=== PATIENT | male | born 1950 | race Caucasian/White ===

== ENCOUNTER → 2018-07-05 | Emergency (ER) | payer MEDICARE, OTHER ==
[~2018-07-05] VITALS: Ht 162.6 cm; Wt 68.2 kg
[~2018-07-05] MED LIST: fentaNYL/PF 50MCG/1 ML 2ML syringe IV ONE; morphine 4 MG/ML inj SYRINge IV ONE; ondansetron/PF 4mg/2ml inj IV ONE; propofol 10mg/ml 20ml vial IV ONE
[2018-07-05 14:03] LABS: BASOPHILS # (AUTO) 0.1 X10'3 (0-0.2); BASOPHILS % (AUTO) 0.4 % (0-1); EOSINOPHILS % (AUTO) 0.2 % (0-6); HEMATOCRIT 42.5 % (42.0-52.0); HEMOGLOBIN 14.4 g/dl (14.0-17.9); LYMPHOCYTES # (AUTO) 1.4 X10'3 (1.1-4.8); LYMPHOCYTES % (AUTO) 6.6 % (21-51); MEAN CORPUSCULAR HEMOGLOBIN 30.2 PG (27.0-31.0); MEAN CORPUSCULAR HGB CONC 33.9 g/dL (33.0-36.5); MEAN CORPUSCULAR VOLUME 89.2 FL (78-98); MONOCYTES # (AUTO) 1.2 X10'3 (0-0.9); MONOCYTES % (AUTO) 5.5 % (2-12); NEUTROPHILS # (AUTO) 18.9 X10'3 (1.8-7.7); NEUTROPHILS % (AUTO) 87.3 % (42-75); PLATELET COUNT 291 X10'3 (140-440); RED BLOOD COUNT 4.76 X10'6 (4.70-6.10); RED CELL DISTRIBUTION WIDTH 13.3 % (11.5-14.5); WHITE BLOOD COUNT 21.6 X10'3 (4.5-11.0)
--- NOTE | 2018-07-05 14:03 | NUR ---
PT BACK FROM CT
[2018-07-05 14:16] LABS: ALANINE AMINOTRANSFERASE 23 U/L (12-78); ALBUMIN 4.2 G/DL (3.4-5.0); ALBUMIN/GLOBULIN RATIO 1.3 (1.1-1.5); ALKALINE PHOSPHATASE 89 IU/L (46-116); ANION GAP 12 (8-16); ASPARTATE AMINO TRANSFERASE 17 U/L (10-37); BILIRUBIN,TOTAL 0.6 MG/DL (0.1-1.0); BLOOD UREA NITROGEN 14 MG/DL (7-18); BUN/CREATININE RATIO 14.9 (5.4-32.0); CALCIUM 9.5 MG/DL (8.5-10.1); CHLORIDE 103 MMOL/L (99-107); CREATININE 0.94 MG/DL (0.60-1.10); GLUCOSE 231 MG/DL (70-104); POTASSIUM 4.3 MMOL/L (3.5-5.1); SODIUM 141 MMOL/L (135-145); TOTAL CARBON DIOXIDE 26.2 MMOL/L (24-32); TOTAL PROTEIN 7.4 G/DL (6.4-8.2); eGFR 80 ML/MIN
[2018-07-05 14:55] LABS: PLATELET ESTIMATE NORMAL; TOTAL CELLS COUNTED 100
[2018-07-05 16:45] VITALS: BP 174/94
== END | disposition home or self-care (01) ==
LOC: ER 13:11
DX: S42.252A Displaced fracture of greater tuberosity of left humerus, initial encounter for closed fracture (principal); S00.81XA Abrasion of other part of head, initial encounter; E11.65 Type 2 diabetes mellitus with hyperglycemia; Z91.19 Patient's noncompliance with other medical treatment and regimen; W14.XXXA Fall from tree, initial encounter; Y93.89 Activity, other specified; Y92.89 Other specified places as the place of occurrence of the external cause; Y99.9 Unspecified external cause status
CPT/HCPCS: 23665; 36415; 70450; 71045; 73030; 73060; 73090; 80053; 82948; 85025; 93005; 96374; 96375; 99152; 99285; J2270; J2405; J2704; J3010

== ENCOUNTER 2019-01-18 05:09 | Observation (INO) | payer MEDICARE ==
[~2019-01-18] VITALS: Ht 182.9 cm; Wt 81.8 kg
[2019-01-18] MEDS ORDERED: naloxone 0.4 mg/ml inj IV ONE (05:10)
[2019-01-18] MEDS ORDERED: ondansetron/PF 4mg/2ml inj IV ONE (05:15)
[2019-01-18] MEDS ORDERED: normal saline 1000ml 1,000 ML IV ONE (05:15)
[2019-01-18 05:32] LABS: BASOPHILS % (AUTO) 0.3 % (0-1); EOSINOPHILS % (AUTO) 0.1 % (0-6); HEMATOCRIT 41.5 % (42.0-52.0); LYMPHOCYTES % (AUTO) 7.1 % (21-51); MEAN CORPUSCULAR HEMOGLOBIN 30.1 PG (27.0-31.0); MEAN CORPUSCULAR HGB CONC 33.8 g/dL (33.0-36.5); MEAN CORPUSCULAR VOLUME 89.1 FL (78-98); MEAN PLATELET VOLUME 9.2 FL (7.4-10.4); MONOCYTES # (AUTO) 0.9 X10'3 (0-0.9); MONOCYTES % (AUTO) 6.7 % (2-12); NEUTROPHILS % (AUTO) 85.8 % (42-75); PLATELET COUNT 243 X10'3 (140-440); RED BLOOD COUNT 4.65 X10'6 (4.70-6.10); RED CELL DISTRIBUTION WIDTH 12.8 % (11.5-14.5)
[2019-01-18 05:43] LABS: ALANINE AMINOTRANSFERASE 22 U/L (12-78); ALBUMIN 3.3 G/DL (3.4-5.0); ALKALINE PHOSPHATASE 84 IU/L (46-116); ANION GAP 10 (8-16); ASPARTATE AMINO TRANSFERASE 43 U/L (10-37); BILIRUBIN,TOTAL 0.7 MG/DL (0.1-1.0); BLOOD UREA NITROGEN 13 MG/DL (7-18); BUN/CREATININE RATIO 14.6 (5.4-32.0); CALCIUM 8.5 MG/DL (8.5-10.1); CHLORIDE 103 MMOL/L (99-107); CREATININE 0.89 MG/DL (0.60-1.10); ETHANOL < 0.010 GM/DL (0.0-0.010); GLUCOSE 310 MG/DL (70-104); MAGNESIUM 1.6 MG/DL (1.5-2.4); PHOSPHORUS 2.8 MG/DL (2.3-4.5); POTASSIUM 4.2 MMOL/L (3.5-5.1); SODIUM 138 MMOL/L (135-145); TOTAL CARBON DIOXIDE 24.6 MMOL/L (24-32); TOTAL PROTEIN 6.6 G/DL (6.4-8.2); eGFR 85 ML/MIN
[2019-01-18] MEDS ORDERED: heparin 25,000 UNIT/250ml bag 250 ML IV SCH (05:47)
[2019-01-18] MEDS ORDERED: aspirin 325mg tablet PO ONE (05:50)
[2019-01-18] MEDS ORDERED: heparin 10,000 units/1 ML INJ IV ONE ×2 (05:50→06:00)
[2019-01-18] MEDS ORDERED: heparin 10,000 units/1 ML INJ IV PRN (05:50)
[2019-01-18 06:00] LABS: CLARITY,URINE CLEAR (Clear); COLOR,URINE YELLOW (Yellow); GLUCOSE, URINE 100 mg/dl (Neg); KETONES,URINE TRACE mg/dl (Neg); LEUKOCYTE ESTERASE ,URINE NEGATIVE (Neg); NITRITES, URINE NEGATIVE (Neg); OCCULT BLOOD,URINE NEGATIVE (Neg); PROTEIN,URINE TRACE mg/dl (Neg); UROBILINOGEN,URINE 0.2 E.U/dL (0.2-1.0)
[2019-01-18 06:01] LABS: UA COLLECTION TYPE FOLEY CATH
[2019-01-18] MEDS ORDERED: aspirin 300mg supp.rect RC STA (06:06)
[2019-01-18 06:07] LABS: URINE AMPHETAMINE SCREEN NEGATIVE (Neg); URINE BARBITUATE SCREEN NEGATIVE (Neg); URINE BENZODIAZEPINES SCREEN NEGATIVE (Neg); URINE CANNABINOID SCREEN NEGATIVE (Neg); URINE COCAINE SCREEN NEGATIVE (Neg); URINE METHADONE SCREEN NEGATIVE (Neg); URINE OPIATE SCREEN NEGATIVE (Neg); URINE PHENCYCLIDINE SCREEN NEGATIVE (Neg)
[2019-01-18 06:09] LABS: PARTIAL THROMBOPLASTIN TIME 25 SECONDS (22-32)
[2019-01-18 06:10] LABS: BACTERIA,URINE NONE SEEN /HPF (Neg); HYALINE CASTS 0-3 /LPF (NEGATIVE); MUCUS STRANDS NONE SEEN /LPF (Neg); RBC,URINE 0-2 /HPF (0-2); SQUAMOUS EPITHELIAL CELL,UR NONE SEEN /LPF (FEW); WBC,URINE 0-4 /HPF (0-4)
--- NOTE | 2019-01-18 06:17 | NUR ---
PATIENT RECEIVED ON BED STILL UNRESPONSIVE TO VERBAL STIMULI,ABLE TO FLINCH WITH PAINFUL STIMULI WHEN STERNUM RUB WAS APPLIED.ROOMATES AT BEDSIDE.PATIENT ON NC 2l.VITAL SIGNS STABLE.PATIENT ON HEPARIN DRIP 1000 UNITS/HOUR.
--- NOTE | 2019-01-18 06:27 | NUR ---
ROOMATE AT BEDSIDE,STERNUM RUB APPLIED BY RN PATIENT FLINCH.
--- NOTE | 2019-01-18 06:43 | NUR ---
RANCH HAND CALLED SHE SAID SHE WILL BE HERE [place] 45 MINUTES.
--- NOTE | 2019-01-18 07:01 | NUR ---
Lorraine/Child called back and spoke to RN she said she will be here in "few minutes","unable to talk right now,there's construction going on in front of the house".
--- NOTE | 2019-01-18 07:24 | NUR ---
CENTERLESS GRINDER TENDER AT BEDSIDE,DAUGHTER/SHANEKA AT BEDSIDE.
--- NOTE | 2019-01-18 08:15 | NUR ---
DAUGHTER SHANEKA AND LORENE WENT HOME.PER PATIENT IS DNR.AWAITING ORDER TO BE PLACE.
--- NOTE | 2019-01-18 08:29 | NUR ---
PATIENT REPOSITIONED FOR COMFORT,NO NOTED SKIN BREAKDOWN TO POSTERIOR TRUNK.PILLOW PLACED ON RIGHT SIDE.HOB ELEVATED.PATIENT DECORTICATES WHEN MOVED.
--- NOTE | 2019-01-18 09:06 | NUR ---
DAUGHTER AT BEDSIDE.
--- NOTE | 2019-01-18 09:12 | NUR ---
mri consent faxed to mri.
--- NOTE | 2019-01-18 10:26 | NUR ---
COVERING WEST FOR BREAK: I WAS TOLD BY LYN DODSON THAT PATIENT IS A DNR. NO ORDER FOR DNR IN CHART, NO DNR BAND ON PATIENT. DISCUSSED PLAN OF CARE WITH DR STRICKLAND. DR STRICKLAND STATES THAT PATIENT IS TO BE ADMITTED WITH COMFORT CARE. NO ORDERS. PATIENT IS ON A HEPARIN GTT AND HAS AN ORDER FOR AN MRI. BBRAUN IV PUMPS ARE NOT COMPATIBLE WITH MRI. DR STRICKLAND IS THINKING ABOUT THE SITUATION
[2019-01-18] MEDS ORDERED: NO HOME MEDS (12:11)
[2019-01-18] MEDS ORDERED: acetaminophen 120MG suppository, rectal RC ONE (13:00)
--- NOTE | 2019-01-18 13:47 | NUR ---
Patient report received from Bernardo in ED
[2019-01-18 14:00] VITALS: BP 119/61
--- NOTE | 2019-01-18 15:46 | NUR ---
Paged Dr Ann to DC orders for labs, she did order to dc them. Just paged and asked for possible pain meds for comfort measures, waiting for response. Addendum: 01/18/19 at 1827 by Keren Melendez RN No pain meds ordered
--- NOTE | 2019-01-18 18:27 | NUR ---
Patient report given to Presley NICHOLSON
[2019-01-18] MEDS ORDERED: acetaminophen 650mg rectal suppository RC PRN (20:45)
[2019-01-18] MEDS ORDERED: ondansetron/PF 4mg/2ml inj IV PRN (20:45)
[2019-01-18] MEDS: morphine 2 MG/ML inj. syringe IV PRN (22:53)
[2019-01-19] MEDS: morphine 2 MG/ML inj. syringe IV PRN ×3 (01:10→06:32)
[2019-01-19] MEDS: LORazepam 2 mg/ml vial IV PRN ×2 (03:14→07:38)
--- NOTE | 2019-01-19 06:30 | NUR ---
Patient in room ORTHO 4015. I have received report from Presley NICHOLSON and had the opportunity to ask questions and assume patient care.
--- NOTE | 2019-01-19 08:15 | NUR ---
Paged Dr. Ann about patient passing and time of . She is aware and gave me an order to pronounce time of . Ran a rythym strip right before to confirm . Patient noted not breathing or heart rate at 0805 with faimly at bedside. Rhythm strip at 0808. Shortly after all of this I called the [facility]. Then I had patient daughter sign memorandum and I called the home for oyster picker. home said they had to do a couple picks ups at other places first and then will be here.
--- NOTE | 2019-01-19 10:05 | NUR ---
Pt with low Noe of 12. Per physical assessment pt with reddened sacrum/coccyx however skin intact. No nutrition intervention warranted at this time. Noted that patient's code status is palliative/comfort. Will continue to follow per LOS protocol. Recommendations: 1) Bowel care per comfort care measures Addendum: 01/19/19 at [address] Amended: Links added.
--- NOTE | 2019-01-19 11:30 | NUR ---
Patient picked up by Nilesh at this time.
== END 2019-01-19 11:35 | disposition expired ==
LOC: ER 05:09 → ORTHO 4S 14:07
PROVIDERS: ADMIT Internal Medicine; ATTEND Internal Medicine
DX: R41.82 Altered mental status, unspecified (principal); I21.4 Non-ST elevation (NSTEMI) myocardial infarction; I25.10 Atherosclerotic heart disease of native coronary artery without angina pectoris; I49.3 Ventricular premature depolarization; R94.31 Abnormal electrocardiogram [ECG] [EKG]; I25.2 Old myocardial infarction; Z95.1 Presence of aortocoronary bypass graft; Z91.048 Other nonmedicinal substance allergy status
CPT/HCPCS: 36415; 70450; 70551; 71045; 80053; 80305; 80320; 81001; 83735; 84100; 84484; 85025; 85610; 85730; 87081; 93005; 95816; 96361; 96365; 96366; 96375; 96376; 99291; G0378; J1644; J2060; J2270; J2310; J2405